=== PATIENT | female | born 1980 | race Caucasian/White ===

== ENCOUNTER 2020-03-09 16:26 | Outpatient (CLI) | payer OTHER, SELFPAY ==
--- NOTE | ~2020-03-09 | MR_ITS ---
EXAMINATION: MR ankle LT wo con DATE: 03/09/2020 17:53 INDICATION: Achilles tendinosis. Peroneal tendinopathy. TECHNIQUE: Magnetic resonance imaging (MRI) of the left ankle was performed without intravenous contr ast. Sequences included sagittal, coronal, and axial proton-density weighted fast spin echo without a nd with fat saturation. COMPARISON: None. FINDINGS: Medial ankle ligaments: Deep and superficial deltoid ligaments as well as the spring ligament are normal. Lateral ankle ligaments: The anterior and posterior inferior tibiofibular ligaments are normal. The anterior talofibular, calc aneofibular and posterior talofibular ligaments are normal. Tendons: Thickening and mild increased intrasubstance signal of the distal Achilles tendon consistent with mil d tendinosis without discrete tear. There is a small amount of enthesopathic ossification within the distal Achilles tendon with moderate-sized enthesophyte at its calcaneal insertion. Fluid and synovit is surrounding the peroneal tendons consistent with moderate tenosynovitis. The peroneus longus tendo n is normal. Longitudinal split tear of the peroneus brevis tendon with portions of the tendon strain of both medial and lateral to the peroneus longus tendon at the level of the tip of the lateral mall eolus. There is severe tendinopathy of both portions of the peroneus brevis tendon between the level of the tip of the lateral malleolus and the level of the calcaneocuboid joint. The tibialis anterior and extensor hallucis longus and extensor digitorum longus tendons are normal. The tibialis posterior , flexor digitorum longus and flexor hallucis longus tendons are normal. Plantar fascia: Mild enthesopathy of the proximal aspect of the central component of the plantar aponeurosis with sma ll enthesophyte at its calcaneal origin. Bones/other: Likely reactive marrow edema at the posterior tuberosity of the calcaneus centered along the calcanea l insertion of the Achilles tendon. Additional mild marrow edema at the calcaneal insertion of the pl remington aponeurosis. Bone alignment is normal. No fracture or pathologic marrow replacing process. Join t spaces appear relatively preserved. Fluid: Physiologic amount of fluid in the joint spaces. Aside from the peroneal tenosynovitis there are no o ther abnormal fluid collections. IMPRESSION: 1. Moderate peroneal tenosynovitis with severe tendinopathy and longitudinal split tearing of the per oneus brevis tendon. 2. Mild enthesopathy at the calcaneal insertion of the distal Achilles tendon and plantar aponeurosis with small enthesophytes/enthesopathic ossification and marrow edema. Reviewed, dictated and finalized at location A. IMPRESSION: 1. Moderate peroneal tenosynovitis with severe tendinopathy and longitudinal sp lit tearing of the peroneus brevis tendon. 2. Mild enthesopathy at the calcaneal insertion of the distal Achilles tendon a nd plantar aponeurosis with small enthesophytes/enthesopathic ossification and marrow edema.
--- NOTE | ~2020-03-09 | MR_ITS ---
EXAMINATION: MR ankle RT wo con DATE: 03/09/2020 18:13 INDICATION: Achilles tendinosis and peroneal tendinopathy TECHNIQUE: Magnetic resonance imaging (MRI) of the right ankle was performed without intravenous cont rast. Sequences included sagittal, coronal, and axial proton-density weighted fast spin echo without and with fat saturation. COMPARISON: None. FINDINGS: Medial ankle ligaments: Deep and superficial deltoid ligaments as well as the spring ligament are normal. Lateral ankle ligaments: The anterior and posterior inferior tibiofibular ligaments are normal. The calcaneofibular and gear straightener ior talofibular ligaments are normal. High-grade if not complete tear of the anterior talofibular lig ament without surrounding edema, likely chronic. Tendons: Mild thickening and increased signal of the distal Achilles tendon consistent with mild tendinosis wi th moderate sized enthesophytes at its calcaneal insertion. Small amount of fluid along the peritonea l tendon sheath consistent with mild tenosynovitis. There is moderate peroneus brevis tendinopathy is between the tip of the lateral malleolus and the level of the calcaneocuboid articulation. Longitudi nal split tear of the peroneus brevis tendon. The peroneus longus tendon is normal. The tibialis ante rior and extensor hallucis longus and extensor digitorum longus tendons are normal. Small amount of f luid along the tibialis posterior tendon sheath consistent with mild tenosynovitis. The tibialis post erior, flexor digitorum longus and flexor hallucis longus tendons are normal. Plantar fascia: Mild thickening and increased signal consistent with mild enthesopathy at the proximal aspect of the central component of the plantar aponeurosis with there is a small enthesophyte. Bones/other: Bone alignment is normal. Bone island at the anterolateral aspect of the distal tibia. Prominent fracisco ow edema at the posterior calcaneal tuberosity centered at the calcaneal insertion of the Achilles te ndon. Marrow signal is otherwise normal. No fracture or pathologic marrow replacing process. No space appear relatively preserved. Sinus Tarsi and tarsal tunnel are unremarkable. Fluid: Physiologic amount fluid in the joint spaces. Aside from the previous noted peroneal and tibialis pos terior tenosynovitis there are no other abnormal fluid collections. IMPRESSION: 1. Mild peroneal tenosynovitis with moderate tendinopathy and longitudinal split tear of the peroneus brevis tendon. 2. Mild insertional enthesopathy of the distal Achilles tendon and proximal plantar aponeurosis. 3. 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 Reviewed, dictated and finalized at location A. IMPRESSION: 1. Mild peroneal tenosynovitis with moderate tendinopathy and longitudinal spli t tear of the peroneus brevis tendon. 2. Mild insertional enthesopathy of the distal Achilles tendon and proximal tyler ntar aponeurosis. 3. 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
== END 2020-03-09 16:27 | disposition home or self-care (01) ==
PROVIDERS: PCP Internal Medicine; Visit Provider Podiatrist Foot & Ankle Surgery
DX: M76.62 Achilles tendinitis, left leg (principal); M76.61 Achilles tendinitis, right leg
CPT/HCPCS: 73721